=== PATIENT | male | born 2000 | race Caucasian/White ===

== ENCOUNTER 2021-10-05 14:15 | Outpatient (RCR) | payer OTHER, SELFPAY | END 2022-04-22 12:59 | disposition home or self-care (01) | PROVIDERS: PCP Family Medicine; Visit Provider Family Medicine | DX: M54.50 Low back pain, unspecified (principal); M62.81 Muscle weakness (generalized); R26.89 Other abnormalities of gait and mobility; Z51.89 Encounter for other specified aftercare | CPT/HCPCS: 97110; 97140; 97162 ==